=== PATIENT | male | born 1960 | race Caucasian/White ===

== ENCOUNTER 2023-05-21 07:47 | Emergency (ER) | payer BC, SELFPAY ==
[2023-05-21 07:48] VITALS: BP 116/78; PULSE 51; RESP 16; TEMP 36.6; O2SAT 99; BMI 23.9
--- NOTE | 2023-05-21 07:59 | CT_ITS ---
EXAM: CT ABDOMEN AND PELVIS WITH INTRAVENOUS CONTRAST CLINICAL INDICATION: lower abd pain TECHNIQUE: Helically acquired images were obtained of the abdomen and pelvis with intravenous contrast. This CT exam was performed using one or more of the following dose reduction techniques: automated exposure control, adjustment of the mA and/or kV according to patient size, and/or use of iterative reconstruction technique. CONTRAST: IV 100mL Isovue-300 RADIATION DOSE: CTDIvol = 14.26 mGy, DLP = 573.52 mGy-cm COMPARISON: No prior examinations are available for comparison. FINDINGS: LOWER THORAX: Unremarkable. Lung bases are clear. No cardiomegaly. No significant pericardial effusion. ABDOMEN: LIVER: Hepatomegaly. GALLBLADDER AND BILE DUCTS: Unremarkable. No calcified gallstones. No gallbladder distention or wall edema. No intra- or extrahepatic biliary ductal dilation. PANCREAS: Minimal prominence of pancreatic duct. No focal cystic or solid mass. SPLEEN: Unremarkable. Normal size without focal cystic or solid mass. ADRENALS: Unremarkable. No nodules. KIDNEYS AND URETERS: Unremarkable. Normal renal size and position. No hydronephrosis. STOMACH AND BOWEL: Sigmoid diverticulosis with focal inflammatory changes consistent with acute diverticulitis. Slightly prominent fluid-filled small bowel loops without evidence of bowel obstruction. PELVIS: APPENDIX: No evidence of acute appendicitis. BLADDER: Thickening of the bladder wall probably due to underdistention. REPRODUCTIVE: Prominent prostate. ABDOMEN and PELVIS: INTRAPERITONEAL SPACE: Unremarkable. No ascites or other fluid collection. No free air. BONES/JOINTS: Mild degenerative changes of the lumbar spine. No suspicious lytic or blastic abnormality. SOFT TISSUES: Unremarkable. No discrete abdominal or pelvic wall hernia. VASCULATURE: Unremarkable. Abdominal aorta is non-dilated. LYMPH NODES: Unremarkable. No enlarged lymph nodes. CT/Abdomen/Pelvis W IV Cont ONLY IMPRESSION: 1. Acute sigmoid diverticulitis . No evidence of drainable abscess. 2. Hepatomegaly. 2. Prominent prostate. Electronically Signed: Ramos Garcia MD at 10:00 EDT ,
--- NOTE | 2023-05-21 08:00 | ED.VIS.GI ---
HPI HPI - GI History of Present Illness Chief Complaint: Abd Pain Informant: patient Abdominal Pain/Flank Pain Onset: Hours (3) Context: Gradual Onset Timing: Continuous Quality: Aching, Cramping and Dull Location: - (infraumbilical) Current Severity: Moderate Maximum Severity: 8/10 Worsened by: - (up and walking) Relieved by: - (sitting/resting) Nausea/Vomiting/Emesis GI Symptom: Positive for Nausea; Negative for Vomiting Diarrhea/Melena/Hematochezia GI Symptom: Negative for Diarrhea, Melena or Hematochezia Associated Symptoms Associated Symptoms: Negative for Dysuria, Frequency, Hematuria or Urgency Narrative Narrative: Healthy 63-year-old male presenting with several hours worth of lower abdominal pain that started gradually and became worse. He had a bowel movement this morning that was normal, and with no pain. He then felt like he needed to go again and he started having discomfort, but not able to go at all and the discomfort has persisted. His initial bowel movement was normal, it was not particularly hard, there is no blood or melena, or mucus that he noticed. Never had any thing like this before. No history of any abdominal surgeries. No urinary symptoms. Some nausea but no vomiting no fevers no radiation into his back or elsewhere, and no migration. [facility] Medical History (Updated 05/21/23 @ 10:[address] Delroy Sosa MD) Seizures Home Medications amoxicillin 875 mg-potassium clavulanate 125 mg tablet 1 tab PO Q12H #20 tabs 05/21/23 [Rx Last Taken Unknown] tramadol 50 mg tablet 50 mg PO Q6H PRN pain 3 days #12 tabs 05/21/23 [Rx Last Taken Unknown] Allergy/AdvReac Type Severity Reaction Status Date / Time GENERIC MEDICATIONS AdvReac Mild Abd Uncoded 05/21/23 07:51 cramps/diarrhea Social History Smoking Status: Never smoker ROS ROS ED Constitutional Constitutional ED: Denies chills or fever(s) Eyes Eyes: Denies change in vision or diplopia ENT ENT ED: Denies rhinorrhea or sore throat Cardiovascular Cardiovascular: Denies chest pain or palpitations Respiratory/Chest Respiratory/Chest: Denies cough or dyspnea Gastrointestinal Gastrointestinal: Reports abdominal pain and nausea; Denies diarrhea, hematemesis, hematochezia, melena or vomiting Genitourinary Genitourinary ED: Denies dysuria or hematuria Musculoskeletal Musculoskeletal: Denies back pain or neck pain Integumentary Denies abscess or rash Neurologic Neurologic: Denies headache(s), paresthesias or weakness Psychiatric Psychiatric: Denies anxiety or suicidal thoughts EXAM Physical Exam Const Vital Signs: 05/21/23 07:48 05/21/23 08:18 Temperature 97.9 F Temperature Source Temporal Pulse Rate 51 L Respiratory Rate 16 16 Blood Pressure 116/78 Blood Pressure Mean 90 Pulse Ox 99 Oxygen Delivery Method Room Air Positive well nourished and well developed General Appearance ED: well developed and NAD HEENT Reports moist mucous membranes normocephalic and atraumatic Eyes PERRL and EOMs intact bilaterally Neck full ROM and supple Resp normal respiratory effort and clear to auscultation bilaterally Cardio regular rate, regular rhythm and no murmurs GI non-distended GI Narrative: Tender in the periumbilical area and infraumbilical area but not suprapubic and not in the lower quadrants. No guarding or rebound. No pulsatile mass, no [place]w sign no Edwards Miranda sign. Auscultation: normoactive bowel sounds Palpation: soft Back/Spine no CVA tenderness General Back: other FROM Extremity normal to inspection General Extremety ED: Negative for edema, pulses abnormal or tenderness General Extremity: Negative for edema or pulses abnormal Neuro oriented x3, CN's II-XII intact bilaterally and no sensory deficits noted Sensorium / Orientation: awake and alert Motor Exam: strength 5/5 throughout Skin no rashes or lesions noted and no wounds MDM MDM MDM Narrative Medical decision making narrative: Patient does have some fairly significant infraumbilical tenderness which is nonspecific, but seen as this patient rarely comes to the emergency department for abdominal pain, I obtained a CT with IV contrast in addition to labs and urine. I suspect something abdominal/intestinal. I reviewed the images and report which I agree with, basically confirming sigmoid diverticulitis without complication/abscess. Patient does not have a significant leukocytosis, the rest of his labs are unremarkable and noted as is his urine, he is appropriate for outpatient treatment. Feeling much better after IV fluids and medications here. We will start him on Augmentin and given appropriate follow-up instructions. Lab Data Attestation: I reviewed the patient's lab results. Labs: Laboratory Results - last 24 hr 05/21/23 05/21/23 08:10 08:50 WBC 9.6 RBC 4.20 L Hgb 12.9 L Hct 40.1 MCV 95.5 H MCH 30.7 MCHC 32.2 RDW Std Deviation 47.8 H RDW Coeff of Usha 13.6 Plt Count 258 MPV 9.9 Immature Gran % (Auto) 0.400 Neut % (Auto) 82.4 H Lymph % (Auto) 13.0 L [place] % (Auto) 3.1 Eos % (Auto) 0.9 Baso % (Auto) 0.2 Absolute Neuts (auto) 7.9 H Absolute Lymphs (auto) 1.25 Nucleated RBC % 0 Sodium 139 Potassium 4.4 Chloride 108 H Carbon Dioxide 28.0 Anion Gap 3 L BUN 12 Creatinine 0.80 Estim Creat Clear Calc 94.51 Est GFR (MDRD) Af Amer 125 Est GFR (MDRD) Non-Af 103 BUN/Creatinine Ratio 14.9 Glucose 143 H Calcium 8.6 Urine Color Yellow Urine Clarity Clear Urine pH 6.0 Ur Specific [place] 1.020 Urine Protein 15 H Urine Glucose (UA) Normal Urine Ketones Negative Urine Occult Blood 10 H Urine Nitrite Negative Urine Bilirubin Negative Urine Urobilinogen Normal Ur Leukocyte Esterase Negative Urine RBC 0-5 SEEN Urine WBC 0-5 SEEN Ur Squamous Epith Cells 0 SEEN Urine Bacteria 0 SEEN Urine Mucus RARE Radiography Diagnostic Testing: Clinical Impression(s) from Imaging Studies Abdomen/Pelvis CT 05/21/23 07:59 IMPRESSION: 1. Acute sigmoid diverticulitis . No evidence of drainable abscess. 2. Hepatomegaly. 2. Prominent prostate. Electronically Signed: Ramos Garcia MD at 10:00 EDT , Discharge Plan Triage Chief Complaint: Abd Pain ED Provider: Delroy Sosa Dx/Rx/DC Orders Clinical Impression: Sigmoid diverticulitis Instructions: Diverticulitis Dc Prescriptions: New amoxicillin-pot clavulanate 875-125 mg tablet 1 tab PO Q12H Qty: 20 0RF tramadol 50 mg tablet 50 mg PO Q6H PRN (Reason: pain) 3 Days Qty: 12 0RF Primary Care Provider: Art Green Referrals: Art Green MD [Primary Care Provider] - (next week) Disposition Disposition: Home, Self Care
[2023-05-21] MEDS: Ondansetron 4 MG/2 ML Vial IV (08:12)
[2023-05-21] MEDS: Dicyclomine 10 MG Capsule 20 MG PO (08:13)
[2023-05-21 08:18] VITALS: RESP 16
[2023-05-21 08:23] LABS: Absolute Lymphocyte Count 1.25 X10^3/uL (0.83-4.51); Absolute Neutrophil Count 7.9 X10^3/uL (2.0-7.7); Basophil# 0.02 X10^3/uL; Basophil% 0.2 % (0-1); Eosinophil# 0.09 X10^3/uL; Eosinophils% 0.9 % (0-5); Hematocrit 40.1 % (40-54); Hemoglobin 12.9 g/dL (13.0-16.5); Lymphocyte # 1.25 X10^3/ul (0.83-4.51); Mean Corp Hgb Conc 32.2 g/dL (32-36); Mean Corpuscular Hgb 30.7 pg (27.0-32.0); Mean Corpuscular Volume 95.5 fL (80-94); Mean Platelet Vol. 9.9 fl (6.2-12.0); Monocyte% 3.1 % (0-10); NRBC Flagged by Analyzer 0 % (0-5); Neutrophil # 7.92 X10^3/uL (2.7-7.7); Neutrophil % 82.4 % (47-70); Platelet Count 258 K/mm3 (150-450); RBC Distribution Width CV 13.6 % (11.6-14.6); RBC Distribution Width SD 47.8 fl (35.1-43.9); White Blood Count 9.6 K/mm3 (4.4-11.0)
[2023-05-21 08:36] LABS: Anion Gap 3 (5-15); BUN 12 mg/dL (7-18); BUN/Creat Ratio 14.9 RATIO (10-20); Calcium,Total 8.6 mg/dL (8.5-10.1); Chloride 108 mmol/L (98-107); EST Glomerular Filtration Rate 103 mL/min (>60); Est Glom Filt Rate - Afr Amer 125 mL/min (>60); Estimated Creatinine Clearance 94.51 ml/min; Glucose 143 mg/dL (74-106); Potassium 4.4 mmol/L (3.5-5.1); Sodium Level 139 mmol/L (136-145)
[2023-05-21 08:56] LABS: Bacteria 0 SEEN /hpf (None Seen); Squamous Epithelial Cells - UA 0 SEEN /hpf (0-5)
[2023-05-21 09:02] LABS: Color, Urine Yellow (Yellow); Glucose, Dipstick Normal (Normal); Ketone-Dipstick Negative (Negative); Leukocyte Esterase-Dipstick Negative /ul (Negative); Nitrite-Dipstick Negative (Negative); Occult Blood-Urine 10 /ul (Negative); Protein-Dipstick 15 mg/dl (Negative); Urine Bilirubin Dipstick Negative (Negative); Urine Clarity Clear (Clear); Urine Urobilinogen Normal (Normal)
[2023-05-21 09:10] LABS: Mucous, Urine RARE /hpf (<or=2+); Red Blood Cells-Urine 0-5 SEEN /hpf (0-5); White Blood Cells 0-5 SEEN /hpf (0-5)
[2023-05-21] MEDS: Amox/Clavulanate 875 MG Tablet PO (10:45)
[2023-05-21 10:50] VITALS: BP 137/69; PULSE 72; RESP 15; O2SAT 98
== END 2023-05-21 10:50 | disposition home or self-care (01) ==
PROVIDERS: Emergency Provider Emergency Medicine; PCP Internal Medicine; Visit Provider Emergency Medicine
DX: K57.32 Diverticulitis of large intestine without perforation or abscess without bleeding (principal)
CPT/HCPCS: 74177; 80048; 81001; 85025; 96374; 99284; Q9967; A4216; J2405

== ENCOUNTER 2024-06-09 07:50 | Emergency (ER) | payer BC, SELFPAY ==
[2024-06-09 07:51] VITALS: BP 103/71; PULSE 61; RESP 16; TEMP 36.2; O2SAT 98; BMI 22.6
--- NOTE | 2024-06-09 08:53 | ED.VIS.LOWEX ---
HPI History of Present Illness HPI Narrative: Patient presents with right knee injury that occurred yesterday. Patient states he was trying to avoid a dog when he fell and landed on his left knee. Patient states the swelling is worse today. Patient describes pain as aching. Patient states it is worse with flexion but better with complete extension. Patient thinks he landed directly on his knee. Patient denies any paresthesias or weakness. Patient denies any headaches or loss of consciousness. Patient denies any other injuries. Chief Complaint: Lower Extremity Injury Informant: patient Occured/Mechanism Mechanism/Context: Yes fall Onset/Context/Timing Onset: Yesterday Context: Sudden Onset Timing: Continuous Quality of Pain: Aching Location: Left knee Worsened by: Flexion Relieved by: Extension Associated Symptoms Associated Symptoms: Negative for Parasthesia, Weakness or Loss of Funtion [facility] Medical History (Updated 06/09/24 @ 09:[address] Eliazar Murdock DO) Seizures Home Medications ?Medication ?Instructions ?Recorded ?Last Taken ?Type amoxicillin 875 mg-potassium 1 tab PO Q12H #20 tabs 05/21/23 Unknown Rx clavulanate 125 mg tablet tramadol 50 mg tablet 50 mg PO Q6H PRN pain 3 days #12 05/21/23 Unknown Rx tabs Allergy/AdvReac Type Severity Reaction Status Date / Time No Known Allergies Allergy Verified 06/09/24 07:51 Surgical History (Updated 06/09/24 @ 08:[address] Eliazar Murdock DO) Hx of shoulder replacement Social History Smoking Status: Never smoker ROS ROS ED Constitutional Constitutional ED: Denies chills or fever(s) Eyes Eyes: Denies blurry vision or change in vision ENT ENT ED: Denies rhinorrhea or sore throat Cardiovascular Cardiovascular: Denies chest pain or palpitations Respiratory/Chest Respiratory/Chest: Denies cough or dyspnea Gastrointestinal Gastrointestinal: Denies nausea or vomiting Genitourinary Genitourinary ED: Denies dysuria or hematuria Musculoskeletal Musculoskeletal: Denies back pain or neck pain Integumentary Denies abscess or rash Neurologic Neurologic: Denies headache(s) or weakness Allergic/Immunologic Allergic/Immunologic ED: Denies mouth swelling or urticaria EXAM Physical Exam Const Vital Signs: 06/09/24 07:51 Temperature 97.1 F L Temperature Source Temporal Pulse Rate 61 Respiratory Rate 16 Blood Pressure 103/71 Blood Pressure Mean 81 Pulse Ox 98 Oxygen Delivery Method Room Air Positive well nourished and well developed General Appearance ED: well developed and NAD HEENT Reports moist mucous membranes Neck full ROM Extremity Extremity Narrative: There is a joint effusion of the left knee. There is no ecchymosis. There is no obvious deformity noted. There is diffuse tenderness over the left knee. Range of motion was limited to approximately 30 degrees of flexion secondary to pain. Strength is 5/5 bilaterally in the lower extremities. Extensor mechanism is intact. Sensation was intact to light touch bilaterally in the lower extremities. Pedal pulses are equal bilaterally. Neuro oriented x3, CN's II-XII intact bilaterally, moves all extremities and no sensory deficits noted Sensorium / Orientation: alert Motor Exam: strength 5/5 throughout Psych mental status grossly normal MDM MDM MDM Narrative Medical decision making narrative: Differential diagnosis includes fracture, sprain, and internal derangement of the left knee. X-rays of the left knee will be obtained to assess for fracture. Radiography Diagnostic Testing: Clinical Impression(s) from Imaging Studies Knee X-Ray 06/09/24 08:57 IMPRESSION: Acute minimally displaced patellar fracture with soft tissue swelling in suprapatellar effusion. Electronically Signed: Gene He MD at 9:29 EDT Reading Location ID and State: [address] [place] [address] , Service support , X-rays of the left knee were obtained. There are 4 views. On my independent interpretation, there is a fracture of the patella. Is minimally displaced. There is soft tissue swelling noted. Radiologist also interpreted the x-rays and agrees. Treatment and Re-Evaluation Narrative: Patient was advised of his findings. Patient was given a knee immobilizer and crutches. Patient was instructed to ice and elevate the left knee. Patient states she would prefer to take Tylenol or ibuprofen as needed for pain. Patient was given a referral for orthopedics. Patient was instructed to follow-up in 5 to 7 days. Patient was instructed to return if worse in any way. Patient understood and was agreeable with the plan. All questions were answered. Discharge Plan Triage Chief Complaint: Lower Extremity Injury ED Provider: Eliazar Murdock Dx/Rx/DC Orders Clinical Impression: Closed fracture of left patella, Fall Instructions: ED Patella Fracture Prescriptions: No Action amoxicillin-pot clavulanate 875-125 mg tablet 1 tab PO Q12H Qty: 20 0RF tramadol 50 mg tablet 50 mg PO Q6H PRN (Reason: pain) 3 Days Qty: 12 0RF Stand Alone Forms: Work Status Form Primary Care Provider: Art Green Referrals: Herminio Cole MD [Med Staff - Active Staff] - 5-7 Days Art Green MD [Primary Care Provider] - Print Language: Latvian Disposition Disposition: Home, Self Care
--- NOTE | 2024-06-09 08:57 | RAD_ITS ---
STUDY: X-RAY - LEFT KNEE REASON FOR EXAM: Male, 64 years old. Injury/Pain TECHNIQUE: 4 view(s) of the knee. COMPARISON: None. FINDINGS: Normal visualized distal femur. Normal visualized proximal tibia and fibula. Normal proximal tibiofibular articulation. There is an acute minimally displaced patellar fracture with associated soft tissue swelling and joint effusion. Normal medial femorotibial compartment. Normal lateral femorotibial compartment. Normal patellofemoral articulation. RAD/Knee 4 or More Views IMPRESSION: Acute minimally displaced patellar fracture with soft tissue swelling in suprapatellar effusion. Electronically Signed: Gene He MD at 9:29 EDT ,
[2024-06-09 10:32] VITALS: BP 105/64; PULSE 52; RESP 16; TEMP 36.6; O2SAT 99
== END 2024-06-09 10:33 | disposition home or self-care (01) ==
PROVIDERS: Emergency Provider Emergency Medicine; PCP Internal Medicine; Visit Provider Emergency Medicine
DX: S82.002A Unspecified fracture of left patella, initial encounter for closed fracture (principal); W18.39XA Other fall on same level, initial encounter; Z96.619 Presence of unspecified artificial shoulder joint
CPT/HCPCS: 73564; 99284

== ENCOUNTER 2024-08-27 13:33 | Emergency (ER) | payer BC, SELFPAY ==
[2024-08-27 13:35] VITALS: BP 135/81; PULSE 69; RESP 18; TEMP 36.4; O2SAT 98; BMI 23.8
--- NOTE | 2024-08-27 14:13 | EX.ED.GENINJ ---
HPI <MINESH Cortes - Last Filed: 08/27/24 15:56> History of Present Illness Chief Complaint: Chest Other Narrative Narrative: Patient presenting today with pain to his left lateral rib cage he has had since Tuesday. He reports that he had a right rotator cuff surgery performed on 08/09/2024 and has to wear a sling on his right arm and wanted to use the leaf blower on his lawn Tuesday so he attached it to a wagon and was bending over laterally to control the leaf blower and was pulling it while it was on the cart for a few hours outside. The pain to his left lateral ribs is reproducible with certain movements, deep breaths, coughing. It is improved with rest. He denies any history of blood clots. He denies any falls or injury to the area. PFSH <MINESH Cortes - Last Filed: 08/27/24 15:56> [facility] Medical History Seizures Home Medications ?Medication ?Instructions ?Recorded ?Last Taken ?Type phenytoin sodium extended 100 mg 300 mg PO QHS 08/27/24 Unknown History capsule (Dilantin Extended) Allergy/AdvReac Type Severity Reaction Status Date / Time phenytoin (From Dilantin) Allergy Rash Verified 08/27/24 13:35 shellfish derived Allergy Swelling Verified 08/27/24 13:35 Surgical History Hx of shoulder replacement Social History Smoking Status: Never smoker ROS <MINESH Cortes - Last Filed: 08/27/24 15:56> ROS ED Constitutional Constitutional ED: Denies chills or fever(s) Cardiovascular Cardiovascular: Denies chest pain or palpitations Respiratory/Chest Respiratory/Chest: Denies dyspnea Gastrointestinal Gastrointestinal: Denies abdominal pain, nausea or vomiting Musculoskeletal Musculoskeletal: Reports arthralgias; Denies myalgias Integumentary Denies rash Neurologic Neurologic: Denies paresthesias EXAM <MINESH Cortes - Last Filed: 08/27/24 15:56> Physical Exam Const Vital Signs: 08/27/24 13:35 08/27/24 13:43 08/27/24 15:47 Temperature 97.5 F L Temperature Source Temporal Pulse Rate 69 67 Respiratory Rate 18 18 Respiratory Effort Normal Non-Labored Blood Pressure 135/81 H Blood Pressure Mean 99 Pulse Ox 98 96 Oxygen Delivery Method Room Air Positive well nourished, well developed and no apparent distress General Appearance ED: well developed HEENT Reports normocephalic and head/scalp atraumatic Mouth ED: Yes moist mucous membranes normal Eyes PERRL and EOMs intact bilaterally Neck full ROM and supple Chest Wall inspection of chest normal Chest Narrative: Pain to palpation to the left lateral rib cage, no crepitus, no ecchymosis Resp normal respiratory effort and clear to auscultation bilaterally Cardio regular rate and regular rhythm GI soft to palpation, non-tender, non-distended and no masses Back/Spine normal ROM and normal to inspection Extremity normal to inspection and full ROM Neuro oriented x3, CN's II-XII intact bilaterally, moves all extremities, no focal motor deficits and no sensory deficits noted Sensorium / Orientation: awake and alert Psych mental status grossly normal and thought process normal Skin no rashes or lesions noted and no wounds <Dr. Delroy Sosa MD - Last Filed: 08/27/24 15:28> Physical Exam Const Vital Signs: 08/27/24 13:35 08/27/24 13:43 08/27/24 15:47 Temperature 97.5 F L Temperature Source Temporal Pulse Rate 69 67 Respiratory Rate 18 18 Respiratory Effort Normal Non-Labored Blood Pressure 135/81 H Blood Pressure Mean 99 Pulse Ox 98 96 Oxygen Delivery Method Room Air [facility] <MINESH Cortes - Last Filed: 08/27/24 15:56> [facility] Narrative Medical decision making narrative: Patient presenting today with pain to his left lateral rib cage she has had since yesterday. He was bent over laterally pulling a cart and controlling a leaf blower for several hours on Tuesday. His pain is reproducible with movements and palpation. He is not have any direct injury to his rib cage. His exam does not sound consistent with a PE. His exam is consistent with a rib strain. However, x-ray will be obtained to rule out rib fracture given this is patient's main concern. I did offer analgesia and he declined. Chest x-ray negative for rib fracture. He was given an incentive spirometer and instructions on how to use this. He does have Percocet and ibuprofen at home he can take for his pain as needed. He will be discharged home in stable condition. Radiography X-Ray: Read by ED Physician Diagnostic Testing: Clinical Impression(s) from Imaging Studies Ribs w/Chest X-Ray 08/27/24 14:28 IMPRESSION: RIBS: Normal x-ray examination of the ribs. CHEST: Bibasilar atelectasis slightly worse on the left side with blunting of left costophrenic angle. Electronically Signed: Kehinde Harrison MD at 15:01 EST , <Dr. Delroy Sosa MD - Last Filed: 08/27/24 15:28> MDM Radiography Diagnostic Testing: Clinical Impression(s) from Imaging Studies Ribs w/Chest X-Ray 08/27/24 14:28 IMPRESSION: RIBS: Normal x-ray examination of the ribs. CHEST: Bibasilar atelectasis slightly worse on the left side with blunting of left costophrenic angle. Electronically Signed: Kehinde Harrison MD at 15:01 EST , Treatment and Re-Evaluation Narrative: I have personally performed a face to face assessment of the patient and have reviewed the RICHARD Note. I performed a substantive portion of the visit including all aspects of the following. My frausto findings include: History is recent right shoulder surgery, also doing yard work using his left arm only and lots of bending over and pulling the wagon. Woke up with discomfort the next day in his left lateral chest wall rib cage no dyspnea. Exam is point tender on the rib/ICS left lateral mid axillary line approximately rib #6 or 5. No crepitus or step-off. No ecchymosis over the area or signs of infection. No splinting with deep inspiration. Equal breath sounds bilaterally and lungs clear. Medical Decison Making 6 view x-rays of the left ribs and PA chest all normal in my interpretation radiology in agreement. Reassured, he has analgesics. Supportive care. Other additions or changes: [None] Discharge Plan Triage Chief Complaint: Chest Other ED Midlevel Provider: Dolores Wills ED Provider: Delroy Sosa Dx/Rx/DC Orders Clinical Impression: Rib sprain Instructions: ED Bruise, Rib Prescriptions: No Action phenytoin sodium extended [Dilantin Extended] 100 mg capsule 300 mg PO QHS Primary Care Provider: Art Green Referrals: Art Green MD [Primary Care Provider] - 5-7 Days Activity Restrictions/Additional Instructions: Follow-up with your PCP and return for any worsening of your symptoms. Use the incentive spirometer 10 times per hour while awake until your pain begins to subside. Print Language: Czech Disposition Disposition: Home, Self Care Discharge Date/Time: 08/27/24 15:48
--- NOTE | 2024-08-27 14:28 | RAD_ITS ---
STUDY: X-RAY - UNILATERAL RIBS ( LEFT ) WITH CHEST REASON FOR EXAM: Male, 64 years old. Left rib pain. TECHNIQUE - RIBS: 5 view(s) of the ribs. TECHNIQUE - CHEST: Single PA view of the chest. COMPARISON: None. FINDINGS - RIBS: Normal visualized ribs without a demonstrated fracture. FINDINGS - CHEST: Increased linear markings at the lung bases slightly worse on the left side with blunting of left costophrenic angle. Bibasilar atelectasis worse on the left side should be ruled out. There is no demonstrated pleural abnormality. Normal size heart. Normal mediastinum and robert. Normal visualized pulmonary arteries. There is atherosclerotic tortuosity of the aortic arch and descending thoracic aorta. There are diffuse degenerative changes of the visualized thoracic spine. Status post left reverse shoulder replacement. There is no demonstrated abnormality of the visualized soft tissue structures of the upper abdomen. RAD/Ribs Uni Min 3V w/PA Chest IMPRESSION: RIBS: Normal x-ray examination of the ribs. CHEST: Bibasilar atelectasis slightly worse on the left side with blunting of left costophrenic angle. Electronically Signed: Kehinde Harrison MD at 15:01 EST ,
[2024-08-27 15:47] VITALS: PULSE 67; RESP 18; O2SAT 96
== END 2024-08-27 15:48 | disposition home or self-care (01) ==
PROVIDERS: Emergency Provider Emergency Medicine; PCP Internal Medicine; Visit Provider Emergency Medicine
DX: S23.41XA Sprain of ribs, initial encounter (principal); X50.9XXA Other and unspecified overexertion or strenuous movements or postures, initial encounter; Y92.096 Garden or yard of other non-institutional residence as the place of occurrence of the external cause; Z96.619 Presence of unspecified artificial shoulder joint
CPT/HCPCS: 71101; 99282